=== PATIENT | female | born 1990 | race Caucasian/White ===

== ENCOUNTER 2018-12-29 17:45 | Emergency (ER) | payer BC, SELFPAY ==
[2018-12-29 17:46] VITALS: BP 147/84; PULSE 77; RESP 15; TEMP 37; O2SAT 97; BMI 21.7
--- NOTE | 2018-12-29 17:55 | ED.DCSUM_ITS ---
History of Present Illness Chief Complaint: Laceration Informant: Patient Onset: Today Quality: Laceration ulnar side left hand Location: Proximal MCP joint of left little finger Current Severity: Mild Maximum Severity: Moderate Worsened by: Initial injury Relieved by: Not applicable Associated Symptoms: Associated symptoms Narrative: Patient is a 28-year-old left-hand dominant female who attempted to clean the bottom of the glass. The glass broke and she sustained laceration to her left h and. She denies paresthesia, anesthesia motors. She does not recall her last tetanus shot. She is concerned because it is her left hand and she because she has well water Prior similar symptoms: No Recent Illness/Hospitalization: No - Past Medical History (1) No significant past medical history Status: Acute Past Medical History - Allergies and Home Meds Allergies/Adverse Reactions: Allergies Penicillins Allergy (Verified 12/29/18 17:46) Hives Primary Care Physician: NOT,DEFINED [NON-STAFF] - Prior records reviewed: Yes Past Medical History: None Surgical History: no surgical history Lives: Spouse/ Significant Other, With Family Smoking Status: Never smoker Drugs: None Review of Systems Musculoskeletal: Denies: Myalgias, Arthralgias, Neck pain, Swelling, Extremity Pain Skin: Reports: Wounds. Denies: Rash, Abrasions Neurological: Denies: Weakness, Parasthesia, Numbness Hematologic: Denies: Easy bruising, Easy bleeding Physical Exam Vital Signs/Narrative: Vital Signs Temp Pulse Resp BP Pulse Ox 12/29/18 17:46 98.6 F 77 15 147/84 H 97 Inital Vital Signs reviewed: Yes General: Well nourished, Well developed, No Acute Distress Head: Normocephalic, Atraumatic Eyes: Perrl, EOMI. Negative for: Pale conjunctiva, Scleral icterus ENT: Moist mucous membranes, No rhinorrhea Cardiovascular: Regular rate, Regular rhythm Respiratory: No distress Extremities: Nontender, No edema, - - There is a irregular shaped 2.0 center laceration ulnar side left hand proximal the MCP joint of the little finger. The extensor minimize tendon is intact. Sensation is normal. Capillary refill is normal. The laceration is beveled and gapes. Skin: Normal color, No rash, Trauma Neurological: Alert, Oriented x3, Normal Strength, Normal Sensation Psychological: Normal affect Diagnostic/Tx/Re-eval - Medical Decision Making Cessation was updated. The wound was anesthetized and please read procedure note. Procedures - Lacerations No standard instances Length: 0.79 in Depth: Sub Q Prep: Sterile Conditions Laceration repair: Irrigated - 100 cc, Lidocaine Irrigated (ml): 100 Number of Sutures/[place]: 5 Suture Information: Ethilon, Simple, 5-0 ED Disposition - Plan for ED Patient: Disposition: Home or Assisted Living Diagnosis: Laceration of left hand Referrals: NOT,DEFINED [NON-STAFF] - Rosalba Capps DO [STAFF PHYSICIAN] - 10-14 Days suture removal Additional Instructions: Since you do not have a primary care physician you were assigned to Dr. Rosalba Capps for follow-up and suture removal in 14 days. Clean wound with peroxide and Q-tip 3 times a day then apply bacitracin ointment. Keep wound clean and dry for the next 48 to 72 hours.
[2018-12-29] MEDS: Diphth,Pertuss(Acell),Tet Vac 0.5 ML Vial IM (18:09)
[2018-12-29 19:32] VITALS: BP 127/81; PULSE 74; RESP 15; O2SAT 98
--- NOTE | 2018-12-29 19:32 | ED.RN ---
PT GIVEN WRITTEN AND VERBAL DISCHARGE INSTRUCTIONS EDUCATED ON SUTURE CARE AT HOME. PT HAND WASHED AND DRESSED BY THIS RN. PT DENIES NAY FURTHER QUESTIONS AND VERBALIZES UNDERSTANDING OF INSTRUCTIONS. PT AMBULATES OUT OF DEPT BY SELF.
== END 2018-12-29 19:33 | disposition home or self-care (01) ==
PROVIDERS: Emergency Provider Emergency Medicine
DX: S61.412A Laceration without foreign body of left hand, initial encounter (principal); W25.XXXA Contact with sharp glass, initial encounter; Y93.9 Activity, unspecified; Y92.9 Unspecified place or not applicable; Y99.9 Unspecified external cause status; Z23 Encounter for immunization; Z88.0 Allergy status to penicillin
CPT/HCPCS: 12001; 90471; 90715; 99284

== ENCOUNTER 2023-09-26 02:24 | Inpatient (IN) | payer BC, SELFPAY ==
[2023-09-26] VITALS (68 sets, daily range): BP systolic 116–175; BP diastolic 59–96; PULSE 58–137; RESP 14–20; TEMP 36.6–37.2; O2SAT 78–100; BMI 27.4
[2023-09-26 02:19] LABS: ROM Internal Control Test YES-OK TO RESULT pt. (Internal QC)
[2023-09-26 02:20] LABS: ROM Patient Test POSITIVE (Negative); Record Kit Lot#, ROM+ K1866
[2023-09-26] MEDS: Lactated Ringers 1,000 ML 999 ML IV (02:25)
[2023-09-26 02:49] LABS: Absolute Lymphocyte Count 2.62 X10^3/uL (0.83-4.51); Absolute Neutrophil Count 5.3 X10^3/uL (2.0-7.7); Basophil# 0.04 X10^3/uL; Basophil% 0.4 % (0-1); Eosinophils% 1.1 % (0-5); Hematocrit 37.5 % (37-47); Hemoglobin 12.6 g/dL (12.0-15.0); Lymphocyte # 2.62 X10^3/ul (0.83-4.51); Lymphocyte % 28.5 % (19-41); Mean Corp Hgb Conc 33.6 g/dL (32-36); Mean Corpuscular Hgb 29.9 pg (27.0-32.0); Mean Corpuscular Volume 89.1 fL (81-99); Mean Platelet Vol. 10.4 fl (6.2-12.0); Monocyte# 1.09 X10^3/uL; Monocyte% 11.8 % (0-10); NRBC Flagged by Analyzer 0 % (0-5); Neutrophil # 5.26 X10^3/uL (2.7-7.7); Neutrophil % 57.2 % (47-70); Platelet Count 248 K/mm3 (150-450); RBC Distribution Width CV 12.5 % (11.6-14.6); Red Blood Count 4.21 M/mm3 (4.2-5.4); White Blood Count 9.2 K/mm3 (4.4-11.0)
[2023-09-26] MEDS: fentaNYL-bupivacaine (epidural) 100 ML BAG EPIDURAL (03:09)
[2023-09-26] MEDS: Lactated Ringers 1,000 ML 200 ML IV (03:26)
[2023-09-26 03:44] LABS: Syphilis Antibodies Non-reactive
[2023-09-26] MEDS: LACTATED RINGERS 500 ML 999 ML IV (05:38)
[2023-09-26] MEDS: Oxytocin 15 Units/NS 250ml 15 UNITS/250 ML IV.SOLN 334 UNITS IV (07:28)
--- NOTE | 2023-09-26 07:37 | PCM.HP.OB ---
HPI - General General Date of Admission: 09/26/23 HPI Narrative STEFFEN HILLS, is a 33 F who presents with MELINDA: 10/01/23 presents with SROM and in active labor Maternal Data Information MELINDA Calculator Estimated Delivery Date Method Current WG Current Estimate 10/01/23 Manual 39w 2d PFSH PFSH Medical History no medical history Home Medications ?Medication ?Instructions ?Recorded ?Last Taken ?Type vit no.133-ferrous 1 tab PO DAILY supplement 09/26/23 09/25/23 08:00 History fumarate 28 mg-folic acid 800 mcg tablet () Allergy/AdvReac Type Severity Reaction Status Date / Time Penicillins Allergy Hives Verified 09/26/23 03:30 Social History Smoking Status: Former smoker History Elective abortions Hx Para 0 Spontaneous abortions Hx # Term Pregnancies Ectopic pregnancies Hx # Pregnancies Multiple births # of living children NST FHR Rate Baby A Baseline: 125 Variability:: Moderate Accelerations:: 15 x 15 Decelerations:: Variable FHR Category:: Category II Uterine Activity:: every 1-4 minutes, strong ROS Constitutional Constitutional: Reports systems reviewed and no addt'l complaints, except as documented; Denies headache(s) Eyes Eyes: Denies acute decrease in peripheral vision, blurry vision or change in vision ENT HEENT: Reports systems reviewed and no addt'l complaints, except as documented Cardiovascular Cardiovascular: Denies chest pain or dizziness Respiratory/Chest Respiratory/Chest: Denies cough, dyspnea, dyspnea on exertion, shortness of breath at rest or shortness of breath with exertion Gastrointestinal Gastrointestinal: Denies abdominal pain, diarrhea, nausea or vomiting Genitourinary Genitourinary: Denies abdominal discomfort Musculoskeletal Musculoskeletal: Denies limited range of motion Integumentary Integumentary: Reports systems reviewed and no addt'l complaints, except as documented Neurologic Neurologic: Reports systems reviewed and no addt'l complaints, except as documented Psychiatric Psychiatric: Reports systems reviewed and no addt'l complaints, except as documented Endocrine Endocrinology: Reports systems reviewed and no addt'l complaints, except as documented Hematologic/Lymphatic Hematologic/Lymphatic: Reports systems reviewed and no addt'l complaints, except as documented Allergic/Immunologic Allergic/Immunologic: Reports systems reviewed and no addt'l complaints, except as documented Vital Signs Vital Signs Vital Signs: 09/26/23 01:46 09/26/23 01:46 09/26/23 01:46 Temperature Temperature Source Temporal Pulse Rate 61 Respiratory Rate Blood Pressure 135/91 H BP Systolic 135 BP Diastolic 91 Pulse Ox 09/26/23 01:46 09/26/23 01:46 09/26/23 03:01 Temperature 98.7 F Temperature Source Pulse Rate Respiratory Rate 16 Blood Pressure 175/96 H BP Systolic 175 BP Diastolic 96 Pulse Ox 09/26/23 03:01 09/26/23 03:02 09/26/23 03:02 Temperature Temperature Source Pulse Rate 68 73 Respiratory Rate Blood Pressure 165/94 H BP Systolic 165 BP Diastolic 94 Pulse Ox 09/26/23 03:06 09/26/23 03:06 09/26/23 03:06 Temperature Temperature Source Pulse Rate 75 71 Respiratory Rate Blood Pressure 150/94 H BP Systolic 150 BP Diastolic 94 Pulse Ox 09/26/23 03:06 09/26/23 03:06 09/26/23 03:11 Temperature Temperature Source Pulse Rate Respiratory Rate 16 Blood Pressure 140/89 H BP Systolic 140 BP Diastolic 89 Pulse Ox 100 09/26/23 03:11 09/26/23 03:11 09/26/23 03:11 Temperature Temperature Source Pulse Rate 69 Respiratory Rate 16 Blood Pressure BP Systolic BP Diastolic Pulse Ox 100 09/26/23 03:16 09/26/23 03:16 09/26/23 03:17 Temperature Temperature Source Pulse Rate 70 Respiratory Rate Blood Pressure 132/82 H BP Systolic 132 BP Diastolic 82 Pulse Ox 100 09/26/23 03:17 09/26/23 03:17 09/26/23 03:21 Temperature Temperature Source Pulse Rate 67 74 Respiratory Rate 16 Blood Pressure BP Systolic BP Diastolic Pulse Ox 09/26/23 03:21 09/26/23 03:22 09/26/23 03:22 Temperature Temperature Source Pulse Rate 77 Respiratory Rate Blood Pressure 142/81 H BP Systolic 142 BP Diastolic 81 Pulse Ox 100 09/26/23 03:22 09/26/23 03:26 09/26/23 03:26 Temperature Temperature Source Pulse Rate 75 Respiratory Rate 16 Blood Pressure BP Systolic BP Diastolic Pulse Ox 100 09/26/23 03:27 09/26/23 03:27 09/26/23 03:27 Temperature Temperature Source Pulse Rate 73 Respiratory Rate 16 Blood Pressure 124/68 H BP Systolic 124 BP Diastolic 68 Pulse Ox 09/26/23 03:31 09/26/23 03:31 09/26/23 03:31 Temperature Temperature Source Pulse Rate 67 72 Respiratory Rate Blood Pressure 130/66 H BP Systolic 130 BP Diastolic 66 Pulse Ox 09/26/23 03:31 09/26/23 03:36 09/26/23 03:36 Temperature Temperature Source Pulse Rate 65 Respiratory Rate Blood Pressure BP Systolic BP Diastolic Pulse Ox 100 100 09/26/23 03:37 09/26/23 03:37 09/26/23 03:41 Temperature Temperature Source Pulse Rate 67 Respiratory Rate Blood Pressure 124/66 H 123/61 H BP Systolic 124 123 BP Diastolic 66 61 Pulse Ox 09/26/23 03:41 09/26/23 03:41 09/26/23 04:41 Temperature Temperature Source Pulse Rate 73 Respiratory Rate Blood Pressure 119/71 BP Systolic 119 BP Diastolic 71 Pulse Ox 100 09/26/23 04:41 09/26/23 04:41 09/26/23 04:41 Temperature Temperature Source Pulse Rate 62 64 Respiratory Rate Blood Pressure BP Systolic BP Diastolic Pulse Ox 99 09/26/23 04:41 09/26/23 04:41 09/26/23 04:41 Temperature 98.2 F Temperature Source Temporal Pulse Rate Respiratory Rate 16 Blood Pressure BP Systolic BP Diastolic Pulse Ox 09/26/23 06:20 09/26/23 06:20 09/26/23 06:21 Temperature Temperature Source Pulse Rate 63 Respiratory Rate Blood Pressure 122/73 H BP Systolic 122 BP Diastolic 73 Pulse Ox 100 09/26/23 06:21 09/26/23 06:25 09/26/23 06:25 Temperature Temperature Source Pulse Rate 61 68 Respiratory Rate Blood Pressure BP Systolic BP Diastolic Pulse Ox 100 09/26/23 06:30 09/26/23 06:30 09/26/23 06:41 Temperature Temperature Source Pulse Rate 60 65 Respiratory Rate Blood Pressure BP Systolic BP Diastolic Pulse Ox 84 09/26/23 06:41 09/26/23 06:46 09/26/23 06:46 Temperature Temperature Source Pulse Rate 80 Respiratory Rate Blood Pressure BP Systolic BP Diastolic Pulse Ox 99 100 09/26/23 07:35 09/26/23 07:35 Temperature Temperature Source Pulse Rate 79 Respiratory Rate Blood Pressure BP Systolic BP Diastolic Pulse Ox 100 Weight Weight: 180 lb 6.4 oz Body Mass Index (BMI) 27.4 Physical Exam Const alert and oriented x3 General Appearance: cooperative Orientation / Consciousness: awake, oriented to person, oriented to place and oriented to time Exam Limitations: no limitations HEENT normocephalic Head and Scalp: normal to inspection, normocephalic and atraumatic Face and Sinus: normal facial exam Eyes General Eye: normal appearance of both eyes Neck full ROM Chest Chest: symmetrical chest wall rise Resp normal respiratory effort and normal air movement Auscultation: clear to auscultation bilaterally Cardio regular rate, regular rhythm, S1 normal heart sound, S2 normal heart sound, no murmurs, no rub, no gallops and no clicks GI normal to inspection, nondistended, normoactive bowel sounds and non-tender appearance of the vagina normal Bladder / Kidney Exam: no CVA tenderness Back/Spine normal ROM Extremity normal to inspection and full ROM Skin no rashes or lesions noted Neuro oriented x3, CN's II-XII intact bilaterally and moves all extremities Sensorium / Orientation: awake, alert and oriented to person Motor Exam: clonus absent Deep Tendon Reflexes: Rt Patellar (L4): 2+ and Lt Patellar (L4): 2+ Labs Labs Labs: Blood Type B NEGATIVE Antibody Screen Pending Hct 37.5 % (37-47) Hgb 12.6 g/dL (12.0-15.0) Syphilis Total Ab Non-reactive 1hr GCT negative GBS negative RPR negative Rubella Immune HBsAG negative HepC negative B negative GC/CT negative Assessment & Plan (1) 39 weeks gestation of : (2) Active labor at term: (3) SROM (spontaneous rupture of membranes): PLAN: Plan 1) Admit to labor and delivery 2) Routine labs 3) Continuous EFM 4) Epidural for pain management 5) collaborative physician, notified of patient above assessment and plan.
--- NOTE | 2023-09-26 07:47 | EX.PCM.OBRPT ---
Assessment & Plan (1) Vaginal delivery: (2) Lactating mother: Maternal Data Information MELINDA Calculator Estimated Delivery Date Method Current WG Current Estimate 10/01/23 Manual 39w 2d Vaginal Delivery Maternal Presentation Maternal Presentation: Active Labor and Spontaneous Rupture of Membranes Operative Information Date of Procedure: 09/26/23 Pre-Operative Diagnosis: Active labor at term, SROM Post-Operative Diagnosis: Surgery / Procedure Performed: Spontaneous Vaginal Delivery Type of Anesthesia: Epidural Estimated Blood Loss: 200 ml Time of Delivery: 07:23 Findings Description of Procedure: Progressed to complete with urge to push. Category 2 FHT with deep variable decelerations. in room to assess for vacuum. Epidural for pain management. Good pushing efforts and decent with anticipated delivery. of viable female infant over intact perineum. APGARS 9,9 respectively. Infant head delivered with body immediately forthcoming. Placed on maternal abdomen, strong cry. Mouth and nares suctioned for secretions. Pitocin started for active 3rd stage management. Cord doubly clamped and cut by FOB after pulsations ceased, delayed cord clamping. Placenta delivered intact via guillory, 3 vessel cord intact. Perineum inspected and revealed intact.Fundus firm and hemostasis achieved. EBL 200ml. Mom and baby stable, planning to breastfeed. Family bonding well. notified of delivery. Presentation: Vertex and SANJUANITA Amniotic Membrane Rupture Type: Spontaneous Amniotic Fluid Description: Clear Placental Delivery Description: Spontaneous Placenta Disposition: [facility] Cord Vessel Description: 3 Vessels Cord Entanglement: Around neck x 1, loose Nuchal Cord Compression: Without compression A Gender: Female (1 minute): 9 (5 minute): 9 Delayed Cord Clamping: Yes Post Vaginal Delivery Medications Given After Delivery: IV Pitocin Episiotomy Description: None Laceration: None Complication Complications: None
[2023-09-26] MEDS: Oxytocin 15 Units/NS 250ml 15 UNITS/250 ML IV.SOLN 83 UNITS IV (08:59)
[2023-09-27 00:20] VITALS: BP 127/77; PULSE 73; RESP 18; TEMP 36.4; O2SAT 98
[2023-09-27 04:20] VITALS: BP 133/88; PULSE 82; RESP 14; TEMP 36.8; O2SAT 99
[2023-09-27 04:46] LABS: Absolute Lymphocyte Count 2.73 X10^3/uL (0.83-4.51); Absolute Neutrophil Count 10.3 X10^3/uL (2.0-7.7); Basophil# 0.06 X10^3/uL; Basophil% 0.4 % (0-1); Eosinophil# 0.17 X10^3/uL; Eosinophils% 1.1 % (0-5); Hemoglobin 11.6 g/dL (12.0-15.0); Lymphocyte # 2.73 X10^3/ul (0.83-4.51); Lymphocyte % 18.4 % (19-41); Mean Corp Hgb Conc 33.1 g/dL (32-36); Mean Corpuscular Hgb 30.5 pg (27.0-32.0); Mean Corpuscular Volume 92.1 fL (81-99); Monocyte# 1.37 X10^3/uL; Monocyte% 9.2 % (0-10); NRBC Flagged by Analyzer 0 % (0-5); Neutrophil # 10.34 X10^3/uL (2.7-7.7); Neutrophil % 69.7 % (47-70); Platelet Count 211 K/mm3 (150-450); RBC Distribution Width CV 13.1 % (11.6-14.6); RBC Distribution Width SD 43.8 fl (35.1-43.9); White Blood Count 14.9 K/mm3 (4.4-11.0)
--- NOTE | 2023-09-27 06:42 | PCM.PN.OB ---
Subjective Subjective Feels good. Minimal pain. Lochia light. Breast feeding. Ambulating and voiding without difficulty Objective Data Objective Data Vital Signs: Vital Signs Temp Pulse Resp BP Pulse Ox O2 Del Method 98.2 F 82 14 133/88 H 99 Room Air 09/27/23 04:20 09/27/23 04:20 09/27/23 04:20 09/27/23 04:20 09/27/23 04:20 09/27/23 04:20 Oxygen Delivery Method Room Air Weight: 81.828 kg Body Mass Index (BMI) 27.4 Intake & Output: Intake and Output for Last 24 Hours 09/25/23 09/26/23 09/27/23 23:59 23:59 23:59 Intake Total 3156.67 / 3156.67 Output Total 1500 / 1500 Balance 1656.67 / 1656.67 Lab / Micro Data 09/27/23 04:30 Labs: Laboratory Results - last 24 hr 09/26/23 02:20: Antibody Screen POSITIVE H, Antibody Identification ANTI-D 09/27/23 04:30: WBC 14.9 H, RBC 3.80 L, Hgb 11.6 L, Hct 35.0 L, MCV 92.1, MCH 30.5, MCHC 33.1, RDW Std Deviation 43.8, RDW Coeff of Leslie 13.1, Plt Count 211, MPV 10.0, Immature Gran % (Auto) 1.200 H, Neut % (Auto) 69.7, Lymph % (Auto) 18.4 L, [place] % (Auto) 9.2, Eos % (Auto) 1.1, Baso % (Auto) 0.4, Absolute Neuts (auto) 10.3 H, Absolute Lymphs (auto) 2.73, Nucleated RBC % 0 ROS Constitutional Constitutional: Denies fatigue, fever(s) or malaise Eyes Eyes: Denies change in vision ENT HEENT: Denies dizziness or headache(s) Genitourinary Genitourinary: Denies burning urination or genital lesions Neurologic Neurologic: Denies confusion, dizziness, headache(s), numbness or weakness Physical Exam Const alert and no apparent distress Narrative: Fundus firm, below umbilicus. Assessment & Plan (1) Vaginal delivery: (2) Lactating mother: PLAN: Plan Discharge home
--- NOTE | 2023-09-27 06:45 | PCM.DC.SUM ---
Providers Date of Admission: 09/26/23 Date of Discharge: 09/27/23 Primary Care Physician: Violeta Primary Care Phys Reason For Visit: VAG DELIVERY Diagnosis Discharge Diagnosis (1) Vaginal delivery: Status: Acute Code(s): O80 - Encounter for full-term uncomplicated delivery (2) Lactating mother: Status: Acute Code(s): Z39.1 - Encounter for care and examination of lactating mother Plan Discharge home Medications at Discharge Home Medications vit no.133-ferrous fumarate 28 mg-folic acid 800 mcg tablet () 1 tab PO DAILY supplement 09/26/23 Hospital Course Operations None Procedures None Summary of Care Provided Minutes Spent on Discharge: 20 Physical Exam Const alert and no apparent distress Narrative: Fundus firm, below umbilicus. Weight / BMI Weight Weight: 81.828 kg Body Mass Index (BMI) 27.4 ABG / Lab / Microbiology Data 09/27/23 04:30 Laboratory: Laboratory Results - last 24 hr 09/26/23 02:20: Antibody Screen POSITIVE H, Antibody Identification ANTI-D 09/27/23 04:30: WBC 14.9 H, RBC 3.80 L, Hgb 11.6 L, Hct 35.0 L, MCV 92.1, MCH 30.5, MCHC 33.1, RDW Std Deviation 43.8, RDW Coeff of Leslie 13.1, Plt Count 211, MPV 10.0, Immature Gran % (Auto) 1.200 H, Neut % (Auto) 69.7, Lymph % (Auto) 18.4 L, [place] % (Auto) 9.2, Eos % (Auto) 1.1, Baso % (Auto) 0.4, Absolute Neuts (auto) 10.3 H, Absolute Lymphs (auto) 2.73, Nucleated RBC % 0 D/C Instructions May resume sexual activity in: 6 weeks Please Follow Up With: Susan Olmedo MD When: Follow up with our office in 1-2 and 6 weeks or as needed. [phone] Meaningful Use Info Meaningful Use Meaningful Use Diagnoses (Choose all that apply): None applicable Ischemic Stroke Statin Dosing Therapy Reference: STATIN DOSE THERAPY REFERENCE: * Patients > 75 years receive moderate or high dose statin therapy. * Patients 75 years or YOUNGER should receive HIGH intensity statin dose unless contraindicated. You will be required to document reason for non-treatment if statin daily dose does not meet guidelines. HIGH DOSE STATIN THERAPY DAILY Atorvastatin > than or = to 40 mg Rosuvastatin > than or = to 20 mg Amlodipine + Atorvastatin > than or = to 2.5/40 mg Ezetimibe + Simvastatin 10/80 mg Simvastatin 80mg Discharge Plan Admission Admit Date/Time: 09/26/23 07:38 Attending Provider: Kristina Lopez Primary Care Provider: Care Physician,No Primary Discharge Orders/Prescriptions Prescriptions: Continued 28-800 mg-mcg tablet 1 tab PO DAILY Referrals / Follow Up: Care Physician,No Primary [Primary Care Provider] - Disposition Disposition (needs filled in before D/C Order can be placed): Home, Self Care
[2023-09-27 08:15] VITALS: BP 128/77; PULSE 77; RESP 16; TEMP 36.7; O2SAT 99
== END 2023-09-27 12:10 | disposition home or self-care (01) | DRG 807 ==
LOC: WPOUT 02:28 → WP 07:06
PROVIDERS: Admitting Provider Advanced Practice Midwife; Visit Provider Advanced Practice Midwife
DX: O76 Abnormality in fetal heart rate and rhythm complicating labor and delivery (principal); Z37.0 Single live birth; O42.92 Full-term premature rupture of membranes, unspecified as to length of time between rupture and onset of labor; O69.81X0 Labor and delivery complicated by cord around neck, without compression, not applicable or unspecified; Z3A.39 39 weeks gestation of pregnancy; Z87.891 Personal history of nicotine dependence
CPT/HCPCS: 59025; 59050; 84112; 85025; 86780; 86850; 86870; 86900; 86901; J7120